=== PATIENT | female | born 1955 | race Caucasian/White ===

== ENCOUNTER → 2024-02-03 11:40 | Outpatient (REF) | payer MEDICARE, OTHER, SELFPAY | LOC: HWRAD 11:40 | PROVIDERS: ATTENDING PHYSICIAN Hospitalist; FAMILY PHYSICIAN Student in an Organized Health Care Education/Training Program; REFERRING PHYSICIAN Family Medicine | DX: M81.0 Age-related osteoporosis without current pathological fracture (principal); R05.1 Acute cough; M54.50 Low back pain, unspecified | CPT/HCPCS: 71046; 72114; 77080 ==

== ENCOUNTER 2024-04-28 11:42 | Emergency (ER) | payer MEDICARE, SELFPAY ==
[2024-04-28 11:47] VITALS: BP 125/74
--- NOTE | 2024-04-28 11:51 | ED.GENMED ---
ED Provider Triage
<NILTON Sanchez - Last Filed: 04/28/24 11:55>
-
Patient seen by provider in Triage?: Seen in Triage
Attestation: A medical screening examination has been initiated by a qualified medical provider. Based on the assessment performed at this time, it has been determined that an emergent medical condition may exist and the patient has been informed
that further medical evaluation and possible additional diagnostic testing may be needed.
HPI: 68-year-old female presents from [facility]. Patient had an injection of Prolia today for her osteoporosis and 5 minutes after felt lightheaded and foggy and then 15 minutes developed headache and has mild chest discomfort. She denies
any shortness of breath she denies any rash. She denies any lip or tongue swelling.
GENERAL: Alert , in no apparent distress
EYE: No visual abnormalities.
NECK: Trachea midline
ENT: No visible abnormalities, no lip or tongue swelling
LUNGS: No acute respiratory distress
NEUROLOGICAL: Alert and oriented
SKIN: Skin intact. No visible changes small amount of erythema at injection site, no hives
MUSCULOSKELETAL: Moving extremities normally
PSYCH: Normal and appropriate interaction.
This is a medical evaluation conducted in person to initiate diagnostic evaluation and provide initial therapeutics. Please see further documentation by the treating clinician.
History of Present Illness
<NILTON Sanchez - Last Filed: 04/28/24 11:55>
General
Chief Complaint: Allergic Reaction
Time Seen by Provider: 04/28/24 12:37
<Nadja Puentes MD - Last Filed: 04/28/24 14:27>
General
Source: patient
Exam Limitations: none
Nursing documentation reviewed up to this point in time: agreed with
History of Present Illness
History of Present Illness:
The patient is a 68-year-old female who reports that shortly after taking a Prolea injection today for osteoporosis, within 2 to 3 minutes, she experienced a feeling of itching inside her body, a rash around the injection site on her abdomen, a
feeling of dizziness and a headache. Patient also reports feeling mild chest tightness. Patient reports her symptoms are nearly gone with the exception of a residual headache which she describes as ' her entire head', throbbing, as well as a
small rash that is itchy on her abdomen. Patient has not had any meds prior to arrival. She denies shortness of breath and chest pain at this time. She reports she has never had an allergic reaction before. Patient denies vision changes, nausea,
vomiting, weakness and numbness.
Past History
<NILTON Sanchez - Last Filed: 04/28/24 11:55>
Past History
ED Past Medical History: Hypercholesterolemia, Psychiatric (a/d) and Other (coliitis/divverticulitis, neck/back pain)
ED Past Surgical History: Gynecological and Other
Patient has exhibited threatening behavior?: No
PSI?: No
Social History
Tobacco: Former smoker (quit ')
Alcohol: None
Personal:
Living: with family
Employment: Employed
Family History
Family History: CAD
Review of Systems
<Nadja Puentes MD - Last Filed: 04/28/24 14:27>
Review of Systems
Allergies reviewed?: Yes
All Other Systems: ROS reviewed and negative except as documented in HPI and ROS
Constitutional: Reports no symptoms
EENT: Reports no symptoms
Respiratory: Reports no symptoms
Cardiac: Reports chest pain
ABD/GI: Reports no symptoms
: Reports no symptoms
Musculoskeletal: Reports no symptoms
Skin: Reports itching and rash
Neurological: Reports dizzy and headache
Endocrine: Reports no symptoms
Hematologic/Lymphatic: Reports no symptoms
Psychiatric: Reports no symptoms
Phy Exam
<Nadja Puentes MD - Last Filed: 04/28/24 14:27>
Physical Exam
Physical Exam:
Physical Exam
General: no apparent distress, not acutely ill
Neck: supple. no meningeal signs. normal psoterior pharynx
Heart: s1/s2 regular rate and rhythm, no murmur. equal radial pulses.
Lungs: no acute respiratory distress. clear bilaterally
Abdomen: normal bowel sounds. not tender. no CVAT
Neuro: alert and oriented. no focal neurological deficits
Skin: Small circular papular rash that patient states is itchy on her right lower abdominal wall which patient reports is where she injected the medication
Psychiatric: well kept. interactive and cooperative
Extremities: no edema. no calf tenderness. negative homans. good distal pulses
Course
<NILTON Sanchez - Last Filed: 04/28/24 11:55>
Orders/Labs/Results
Orders:
Orders
04/28/24 11:44
Electrocardiogram (*1) Urgent
Reason for Study: Chest Pain
EKG- Treatment ONCE
04/28/24 13:37
Diphenhydramine [Benadryl] 25 mg PO NOW STA
Ibuprofen [Motrin] 600 mg PO NOW STA
04/28/24 13:[address] Non Medication Order As Directed
Physician Order: Patient can eat
Above order entered?: Yes
Vital Signs
Initial and Last Documented VS:
Initial Vital Signs
Temp Pulse Resp BP Pulse Ox
98.0 F 77 16 125/74 98
04/28/24 11:47 04/28/24 11:47 04/28/24 11:47 04/28/24 11:47 04/28/24 11:47
Last Documented Vital Signs
Temp Pulse Resp BP Pulse Ox
98.0 F 77 16 125/74 98
04/28/24 11:47 04/28/24 11:47 04/28/24 12:02 04/28/24 11:47 04/28/24 11:47
<Nadja Puentes MD - Last Filed: 04/28/24 14:27>
Orders/Labs/Results
Orders:
Orders
04/28/24 11:44
Electrocardiogram (*1) Urgent
Reason for Study: Chest Pain
EKG- Treatment ONCE
04/28/24 13:37
Diphenhydramine [Benadryl] 25 mg PO NOW STA
Ibuprofen [Motrin] 600 mg PO NOW STA
04/28/24 13:[address] Non Medication Order As Directed
Physician Order: Patient can eat
Above order entered?: Yes
Vital Signs
Initial and Last Documented VS:
Initial Vital Signs
Temp Pulse Resp BP Pulse Ox
98.0 F 77 16 125/74 98
04/28/24 11:47 04/28/24 11:47 04/28/24 11:47 04/28/24 11:47 04/28/24 11:47
Last Documented Vital Signs
Temp Pulse Resp BP Pulse Ox
98.0 F 77 16 125/74 98
04/28/24 11:47 04/28/24 11:47 04/28/24 12:02 04/28/24 11:47 04/28/24 11:47
<Nadja Puentes MD - Last Filed: 04/28/24 14:27>
MDM/Problems Addressed
Differential Diagnosis Includes:
Localized allergic reaction, dermatitis, anaphylaxis
MDM/Problems Addressed:
Patient presents with itchy rash at injection site, overall itchy feeling, chest tightness and headache within minutes after giving herself a new medication
<Nadja Puentes MD - Last Filed: 04/28/24 14:27>
*Pulse Oximetry
Patient hypoxic: no
*EKG
Interpreted by ED Provider?: Yes
Interpretation: abnormal
Comparison EKG: no changes
Rate: normal
Rhythm: sinus
[place]: normal axis
Interval: normal interval
QRS Pattern: normal QRS
Ischemia: non-specific ST changes
*Director Of Health Education Interpretation
Rate: Director Of Health Education- N/A
*Critical Care Note
Total Time (30-74mins, 75-104mins- exclusive of procedures): Not Applicable
Data Reviewed
Review of Other/Old Records Reveals: Other (Prior EKG done in January 2023 looks the same as it does today)
Source: patient and spouse
<Nadja Puentes MD - Last Filed: 04/28/24 14:27>
Update Note
Update Note:
2:20 PM patient feels much better. There is no sign of respiratory distress, uvular swelling or any signs of anaphylaxis
ED Attending Note
<NILTON Sanchez - Last Filed: 04/28/24 11:55>
-
Portions of this chart may have been created with voice recognition software.� Occasional wrong word or��sound alike� substitutions may have occurred due to the inherent limitations of voice recognition software.
Discharge Plan
Departure
Patient Disposition: Home (Routine Discharge)
Date of Disposition: 04/28/24
Time of Disposition: 14:24
Patient with high blood pressure during this ER visit?: No
Condition: Good
Covid-19: Not Applicable
Discharge Problem:
Allergic reaction caused by a drug
Instructions: Drug allergy
Prescriptions:
No Action
atorvastatin [Lipitor] 10 MG tablet
10 mg PO DAILY
valacyclovir 500 mg tablet
500 mg PO PRN PRN (Reason: shingles)
diazepam 10 mg Tablet
5 - 10 mg PO BID
Patient Comments:
05/17/2022: last filled 04/19/22, 40 tabs for 20 days from [id number]
Medical Marijuana
1 drp PO PRN PRN (Reason: anixety,mild pain)
Patient Comments:
05/17/2022: Pt vapes, and goes to [facility] [place] [address] [place] [phone]
citalopram [Celexa] 20 mg Tablet
20 mg PO DAILY
tramadol 50 mg tablet
50 mg PO Q6H PRN (Reason: pain) Qty: 20 0RF
Referrals:
Indra Markham, [Family Provider] -
Activity Restrictions/Additional Instructions:
Do not use that medication, Prolea, ever again. Take 25 mg of Benadryl every 6 hours as needed for any lingering itching
Interventions
Interventions:
*Risk Screen - Suicide Last Done: 04/28/24 11:47
*General Assessment Last Done: 04/28/24 12:05
*Neglect/Abuse Screening Last Done: 04/28/24 11:47
*ED COVID-19 Vaccine History Last Done: 04/28/24 12:05
ED- Cardiac Assessment Last Done: 04/28/24 12:05
ED- Pulmonary Assessment Last Done: 04/28/24 12:05
ED-Skin Assessment Last Done: 04/28/24 12:05
Discharge Date and Time
Print Language: CHINESE
[2024-04-28] MEDS: MOTRIN 600 MG PO (13:42)
[2024-04-28] MEDS: BENADRYL 25 MG PO (13:42)
[2024-04-28 14:32] VITALS: BP 121/74
== END 2024-04-28 14:35 | disposition home or self-care (01) ==
LOC: EMR 11:42
PROVIDERS: EMERGENCY PHYSICIAN Emergency Medicine; FAMILY PHYSICIAN Student in an Organized Health Care Education/Training Program
DX: R42 Dizziness and giddiness (principal); R51.9 Headache, unspecified; R07.89 Other chest pain; T50.905A Adverse effect of unspecified drugs, medicaments and biological substances, initial encounter; X58.XXXA Exposure to other specified factors, initial encounter; E78.00 Pure hypercholesterolemia, unspecified; M81.0 Age-related osteoporosis without current pathological fracture; Z82.49 Family history of ischemic heart disease and other diseases of the circulatory system; Z87.891 Personal history of nicotine dependence
CPT/HCPCS: 99283; 93005

== ENCOUNTER → 2024-06-13 15:12 | Outpatient (REF) | payer MEDICARE, SELFPAY | LOC: HWRAD 15:12 | PROVIDERS: ATTENDING PHYSICIAN Hospitalist; FAMILY PHYSICIAN Family Medicine | DX: M25.511 Pain in right shoulder (principal) | CPT/HCPCS: 73030 ==

== ENCOUNTER 2025-07-03 18:40 | Observation (INO) | payer MEDICARE, SELFPAY ==
[2025-07-03] VITALS (13 sets, daily range): BP systolic 106–159; BP diastolic 61–89; BMI 21.8; BMI 20.9
[2025-07-03 12:01] LABS: Hematocrit 39.8 % (37.0-47.0); Hemoglobin 13.2 g/dL (12.0-16.0); Mean Corp Hgb Conc. 33.2 g/dL (33.0-37.0); Mean Corpuscular Volume 82.7 fL (81.0-99.0); Nucleated Red Blood Cells % 0 %; Platelet Count 207 10^3/uL (130-400); Red Cell Dist. Width 13.2 % (11.5-14.5)
--- NOTE | 2025-07-03 12:02 | ED.GENMED ---
History of Present Illness
<Grover Fletcher MD, Resident - Last Filed: 07/03/25 19:04>
General
Chief Complaint: Chest Pain
Time Seen by Provider: 07/03/25 12:02
History of Present Illness
History of Present Illness:
70 yo F PMH HLD, depression, anxiety GERD p/w chest pain at 9am this morning. She describes pressure-like pain, nonradiating, associated with some dyspnea. she reports no change to her routine, the pressure came up with no clear trigger. She denies
nausea/vomiting. She denies palpitations now, but experienced them a few days ago.
She started remeron since last Thursday and is on escitalopram.
She denies fevers or sweating.
Past History
<Grover Fletcher MD, Resident - Last Filed: 07/03/25 19:04>
Past History
ED Past Medical History: Hypercholesterolemia, Psychiatric (a/d) and Other (coliitis/divverticulitis, neck/back pain)
ED Past Surgical History: Gynecological and Other
Patient has exhibited threatening behavior?: No
PSI?: No
Social History
Tobacco: Former smoker (quit ')
Alcohol: None
Personal:
Living: with family
Employment: Employed
Family History
Family History: CAD
Review of Systems
<Grover Fletcher MD, Resident - Last Filed: 07/03/25 19:04>
Review of Systems
Constitutional: Reports no symptoms
EENT: Reports no symptoms
Respiratory: Reports trouble breathing
Cardiac: Reports chest pain
ABD/GI: Reports no symptoms
: Reports no symptoms
Musculoskeletal: Reports no symptoms
Neurological: Reports no symptoms
Phy Exam
<Grover Fletcher MD, Resident - Last Filed: 07/03/25 19:04>
Physical Exam
Physical Exam:
VS 139/70, HR 57, T 97.9
General: no acute distress
CV: no murmurs on my exam
Pulm: CTAB
GI: no tenderness to palpation
MSK: no lower extremity edema
Neuro: AOx3, nonfocal
Scores
<Grover Fletcher MD, Resident - Last Filed: 07/03/25 19:04>
Heart Score for Chest Pain Patients
STEMI patient?: No
History: Moderately Suspicious
ECG: Normal
Age: >/= 65 years
Risk Factors: 1 or 2 Risk Factors
Troponin: </= Normal Limit
Heart Score for Chest Pain Patients: 4
Heart Score Risk: 20.3% MACE over next 6 weeks
Course
<Grover Fletcher MD, Resident - Last Filed: 07/03/25 19:04>
Orders/Labs/Results
Orders:
Orders
07/03/25
Electrocardiogram (*1) Stat
Comment: DONE EMR
07/03/25 10:40
EKG [Electrocardiogram (*1)] Urgent
Reason for Study: Chest Pain
07/03/25 10:41
EKG- Treatment ONCE
07/03/25 11:31
C-Reactive Protein Urgent
Comment: ADD ON
Complete Blood Count/With Diff Urgent
Comprehensive Metabolic Panel Urgent
Erythrocyte Sed Rate Urgent
Comment: ADD ON
Troponin I Urgent
07/03/25 12:33
Aspirin Chewable [Low Strength Aspirin] 324 mg PO NOW STA
07/03/25 12:48
Nitroglycerin Sublingual [Nitrostat (Sublingual)] 0.4 mg SL NOW STA
CR Chest - 2 Views Urgent
Comment:
Reason For Exam: chest pain
07/03/25 14:20
Troponin I Urgent
07/03/25 15:39
Electrocardiogram (*1) Urgent
Reason for Study: Chest Pain
EKG- Treatment ONCE
07/03/25 15:45
Echo 2D MMode Color/Doppler Stat
Reason for Study: chest pain
07/03/25 16:52
Ketorolac [Toradol] 15 mg IV NOW STA
07/03/25 16:53
Add On- LAB Urgent
Tests Added?: ESR/CRP
07/03/25 16:56
Pantoprazole [Protonix IV] 40 mg IV NOW STA
07/03/25 17:01
D-Dimer Urgent
07/03/25 17:48
Admit/Transfer Patient As Directed
Co-Sign Provider:
Level of Care: Observation services
Assign to:: Telemetry
Physician / Group: htay
Diagnosis: CP
Reason for Telemetry: Chest Pain syndromes
Date to Stop Telemetry: 07/05/25
Time to Stop Telemetry: 11:00
07/03/25 17:49
Code Status As Directed
Resuscitation Status: Full Code
07/03/25 17:53
CT Chest PE Study Urgent
Comment:
Reason For Exam: chest pain, elevated D-dimer
07/05/25 11:00
DC Protocol for Telemetry ONCE
Abnormal Lab Results
07/03/25 07/03/25
11:31 17:01
MPV 11.4 H fL
(7.4-10.4)
ESR 22 H mm/hour
(0-20)
D-Dimer 1.35 H ug/mlFEU
(0.00-0.50)
Chloride 109 H mmol/L
(98-107)
07/03/25 11:31
07/03/25 11:31
Vital Signs
Initial and Last Documented VS:
Initial Vital Signs
Temp Pulse Resp BP Pulse Ox
97.9 F 66 16 148/83 96
07/03/25 10:44 07/03/25 10:44 07/03/25 10:44 07/03/25 10:44 07/03/25 10:44
Last Documented Vital Signs
Temp Pulse Resp BP Pulse Ox
97.9 F 68 20 121/65 96
07/03/25 10:44 07/03/25 18:00 07/03/25 18:00 07/03/25 18:00 07/03/25 18:00
<Mario Berg, DO - Last Filed: 07/03/25 13:14>
Orders/Labs/Results
Orders:
Orders
07/03/25
Electrocardiogram (*1) Stat
Comment: DONE EMR
07/03/25 10:40
EKG [Electrocardiogram (*1)] Urgent
Reason for Study: Chest Pain
07/03/25 10:41
EKG- Treatment ONCE
07/03/25 11:31
C-Reactive Protein Urgent
Comment: ADD ON
Complete Blood Count/With Diff Urgent
Comprehensive Metabolic Panel Urgent
Erythrocyte Sed Rate Urgent
Comment: ADD ON
Troponin I Urgent
07/03/25 12:33
Aspirin Chewable [Low Strength Aspirin] 324 mg PO NOW STA
07/03/25 12:48
Nitroglycerin Sublingual [Nitrostat (Sublingual)] 0.4 mg SL NOW STA
CR Chest - 2 Views Urgent
Comment:
Reason For Exam: chest pain
07/03/25 14:20
Troponin I Urgent
07/03/25 15:39
Electrocardiogram (*1) Urgent
Reason for Study: Chest Pain
EKG- Treatment ONCE
07/03/25 15:45
Echo 2D MMode Color/Doppler Stat
Reason for Study: chest pain
07/03/25 16:52
Ketorolac [Toradol] 15 mg IV NOW STA
07/03/25 16:53
Add On- LAB Urgent
Tests Added?: ESR/CRP
07/03/25 16:56
Pantoprazole [Protonix IV] 40 mg IV NOW STA
07/03/25 17:01
D-Dimer Urgent
07/03/25 17:48
Admit/Transfer Patient As Directed
Co-Sign Provider:
Level of Care: Observation services
Assign to:: Telemetry
Physician / Group: htay
Diagnosis: CP
Reason for Telemetry: Chest Pain syndromes
Date to Stop Telemetry: 07/05/25
Time to Stop Telemetry: 11:00
07/03/25 17:49
Code Status As Directed
Resuscitation Status: Full Code
07/03/25 17:53
CT Chest PE Study Urgent
Comment:
Reason For Exam: chest pain, elevated D-dimer
07/05/25 11:00
DC Protocol for Telemetry ONCE
Abnormal Lab Results
07/03/25 07/03/25
11:31 17:01
MPV 11.4 H fL
(7.4-10.4)
ESR 22 H mm/hour
(0-20)
D-Dimer 1.35 H ug/mlFEU
(0.00-0.50)
Chloride 109 H mmol/L
(98-107)
07/03/25 11:31
07/03/25 11:31
Vital Signs
Initial and Last Documented VS:
Initial Vital Signs
Temp Pulse Resp BP Pulse Ox
97.9 F 66 16 148/83 96
07/03/25 10:44 07/03/25 10:44 07/03/25 10:44 07/03/25 10:44 07/03/25 10:44
Last Documented Vital Signs
Temp Pulse Resp BP Pulse Ox
97.9 F 68 20 121/65 96
07/03/25 10:44 07/03/25 18:00 07/03/25 18:00 07/03/25 18:00 07/03/25 18:00
<Cade Quezada MD - Last Filed: 07/03/25 16:58>
Orders/Labs/Results
Orders:
Orders
07/03/25
Electrocardiogram (*1) Stat
Comment: DONE EMR
07/03/25 10:40
EKG [Electrocardiogram (*1)] Urgent
Reason for Study: Chest Pain
07/03/25 10:41
EKG- Treatment ONCE
07/03/25 11:31
C-Reactive Protein Urgent
Comment: ADD ON
Complete Blood Count/With Diff Urgent
Comprehensive Metabolic Panel Urgent
Erythrocyte Sed Rate Urgent
Comment: ADD ON
Troponin I Urgent
07/03/25 12:33
Aspirin Chewable [Low Strength Aspirin] 324 mg PO NOW STA
07/03/25 12:48
Nitroglycerin Sublingual [Nitrostat (Sublingual)] 0.4 mg SL NOW STA
CR Chest - 2 Views Urgent
Comment:
Reason For Exam: chest pain
07/03/25 14:20
Troponin I Urgent
07/03/25 15:39
Electrocardiogram (*1) Urgent
Reason for Study: Chest Pain
EKG- Treatment ONCE
07/03/25 15:45
Echo 2D MMode Color/Doppler Stat
Reason for Study: chest pain
07/03/25 16:52
Ketorolac [Toradol] 15 mg IV NOW STA
07/03/25 16:53
Add On- LAB Urgent
Tests Added?: ESR/CRP
07/03/25 16:56
Pantoprazole [Protonix IV] 40 mg IV NOW STA
07/03/25 17:01
D-Dimer Urgent
07/03/25 17:48
Admit/Transfer Patient As Directed
Co-Sign Provider:
Level of Care: Observation services
Assign to:: Telemetry
Physician / Group: htay
Diagnosis: CP
Reason for Telemetry: Chest Pain syndromes
Date to Stop Telemetry: 07/05/25
Time to Stop Telemetry: 11:00
07/03/25 17:49
Code Status As Directed
Resuscitation Status: Full Code
07/03/25 17:53
CT Chest PE Study Urgent
Comment:
Reason For Exam: chest pain, elevated D-dimer
07/05/25 11:00
DC Protocol for Telemetry ONCE
Abnormal Lab Results
07/03/25 07/03/25
11:31 17:01
MPV 11.4 H fL
(7.4-10.4)
ESR 22 H mm/hour
(0-20)
D-Dimer 1.35 H ug/mlFEU
(0.00-0.50)
Chloride 109 H mmol/L
(98-107)
07/03/25 11:31
07/03/25 11:31
Vital Signs
Initial and Last Documented VS:
Initial Vital Signs
Temp Pulse Resp BP Pulse Ox
97.9 F 66 16 148/83 96
07/03/25 10:44 07/03/25 10:44 07/03/25 10:44 07/03/25 10:44 07/03/25 10:44
Last Documented Vital Signs
Temp Pulse Resp BP Pulse Ox
97.9 F 68 20 121/65 96
07/03/25 10:44 07/03/25 18:00 07/03/25 18:00 07/03/25 18:00 07/03/25 18:00
<Grover Fletcher MD, Resident - Last Filed: 07/03/25 19:04>
MDM/Problems Addressed
Differential Diagnosis Includes:
ACS, anxiety, PE/DVT, serotonin syndrome, GERD
MDM/Problems Addressed:
70 yo F p/w chest pain, pressure, with dyspnea no clear trigger. recently started mirtazapine with escitalopram
afebrile, she denies fevers or sweating pointing away from serotonin syndrome
EKG was NSR; troponin < 0.012 which currently reassure against ACS
CBC/CMP largely unremarkable
She reports an extensive family history (mother had CABG, brothers both had myocardial infarctions).
she reports being relatively inactive, but no immobilization or recent travel, no recent surgeries or malignancy hx, no asymmetric leg swelling, which would raise concern for PE or DVT.
she denies hemoptysis
Plan:
- repeat troponin at 3hr
- aspirin 324mg
- sublingual nitroglycerin 0.4mg
- CXR
Update:
- CXR no acute cardiopulmonary process
- repeat troponin < 0.012
- However, patient reports that her chest pain has worsened while in the ED, and while being at rest
- cardiology DCA notified
Update:
- echocardiogram - unremarkable
- per cardiology, admit to hospitalist and if chest pain persists in AM, possible cath
- d-dimer returned elevated 1.35, CT Chest PE ordered
Update:
CT Chest PE no evidence of PE:
1. Mild cardiomegaly.
2. Mild right lung volume loss with mild left to right mediastinal shift and mild elevation of the right hemidiaphragm.
3. Mild bilateral bronchitis.
4. Moderate mosaic attenuation in the lower lobes suggesting obstructive small airways disease with multifocal air trapping and subsegmental atelectasis.
5. Multilevel vertebral body endplate compression fractures in the thoracic spine with mild multilevel loss of vertebral body height.
Patient has been admitted to hospitalist team and will be followed up by cardiology service in the AM.
<Grover Fletcher MD, Resident - Last Filed: 07/03/25 19:04>
*Pulse Oximetry
SaO2: 97
Oxygen Mode of Delivery: Room air
Patient hypoxic: no
*Critical Care Note
Total Time (30-74mins, 75-104mins- exclusive of procedures): Not Applicable
<Cade Quezada MD - Last Filed: 07/03/25 16:58>
Update Note
Update Note:
Pt evaluated in ED by cardiology () - in light of persistent chest pain, recommends that patient to be admitted under hospitalist service for further evaluation and treatment, including trending of cardiac enzymes. In addition, recommends
checking for ESR/CRP, as well as D-dimer. Cardiology service will continue to follow the patient as an inpatient.
ED Attending Note
<Grover Fletcher MD, Resident - Last Filed: 07/03/25 19:04>
-
Portions of this chart may have been created with voice recognition software.� Occasional wrong word or��sound alike� substitutions may have occurred due to the inherent limitations of voice recognition software.
<Mario Berg DO - Last Filed: 07/03/25 13:14>
ED Attending Note
Patient seen and examined by attending physician: Yes
I performed a history and physical exam of patient and discussed management with resident, I reviewed resident's note and agree with documented findings and plan of care.: Yes
ED Attending Note:
I have reviewed and agree with history treatment plan by Grover Fletcher MD. My exam revealed
Physical Exam
General: no apparent distress, not acutely ill
Neck: supple. no meningeal signs. normal posterior pharynx
Heart: s1/s2 regular rate and rhythm, no murmur. equal radial
pulses.
HEENT: Pupils equal round reactive to light, EOMI
Lungs: no acute respiratory distress. clear bilaterally
Abdomen: normal bowel sounds. not tender. no CVAT
Neuro: alert and oriented. no focal neurological deficits cranial nerves II through XII intact
Skin: no rash
Psychiatric: well kept. interactive and cooperative
Extremities: no edema. no calf tenderness. negative homans. good distal pulses
70-year-old female with mild chest pressure. Initial troponin and EKG normal. Will repeat troponin, give aspirin and dose of nitroglycerin, and reassess. If pain persists, will consider admission, if resolved and negative troponin on repeat may
consider outpatient follow-up with cardiology.
Discharge Plan
Departure
Patient Disposition: Admit
Date of Disposition: 07/03/25
Time of Disposition: 16:56
Admit to: Telemetry
Presentation/result/management discussed w/ accepting MD/DO: Hospitalist
Discharge Problem:
Chest pain
Interventions
Interventions:
*General Assessment Last Done: 07/03/25 11:46
*Neglect/Abuse Screening Last Done: 07/03/25 11:46
*ED COVID-19 Vaccine History Last Done: 07/03/25 11:46
*ED Influenza Vaccine History Last Done: 07/03/25 11:46
[facility] Risk Assessment Tool Last Done: 07/03/25 11:46
*Risk Screen - Suicide (C-SSRS) Last Done: 07/03/25 11:46
ED- Cardiac Assessment Last Done: 07/03/25 11:46
[2025-07-03 12:15] LABS: ALT (SGPT) 23 U/L (0-35); AST (SGOT) 27 U/L (14-36); Albumin 4.1 g/dl (3.5-5.0); Alkaline Phosphatase 107 U/L (38-126); Blood Urea Nitrogen 12 mg/dl (7-17); Calcium 9.4 mg/dl (8.4-10.2); Carbon Dioxide 24 mmol/L (22-30); Chloride 109 mmol/L (98-107); Estimated Creatinine Clearance 62 ml/min; Glucose 90 mg/dl (70-99); Potassium 4.2 mmol/L (3.5-5.1); Sodium 138 mmol/L (135-145); Total Protein 7.1 g/dl (6.3-8.2); eGFR > 60.00
[2025-07-03 12:27] LABS: Troponin I < 0.012 ng/ml
[2025-07-03] MEDS: LOW STRENGTH ASPIRIN 324 MG PO (12:37)
[2025-07-03] MEDS: NITROSTAT (SUBLINGUAL) 0.4 MG SL (12:56)
[2025-07-03 14:54] LABS: Troponin I < 0.012 ng/ml
--- NOTE | 2025-07-03 16:52 | CON.CAR ---
Addendum entered and electronically signed by Christelle Joseph MD 07/03/25 17:36:
I saw and examined the patient.
[facility]'s note was reviewed and I agree with the note.
Comment: Nadya is a 67-year-old female with past medical history significant for anxiety/depression, IBS, C. difficile episodes in the past with diverticulitis, gastroparesis who presents for episode of acute onset chest pain which then comes
and goes while she was at rest not exerting herself. There is no exacerbating or alleviating factors. It is not associated with shortness of breath though she does get short of breath every now and then. She gets occasional palpitations. No
syncope. She had troponin x 2 which are undetectable. ECG shows sinus bradycardia without any acute ischemic changes. We have been consulted due to concern for possible unstable angina.
.
Vital signs and lab work reviewed. On exam patient has a flat affect, at bedside, regular rate, normal S1 and S2, no murmurs, rubs or gallops, abdomen is soft, nontender, nondistended with active bowel sounds, warm extremities without
significant edema, normal carotid strokes, no carotid bruit, no JVD
.
Recommendations:
1. We reviewed the echocardiogram at bedside which showed normal biventricular function without significant valvular abnormalities or wall motion abnormalities.
2. We had a honest discussion with patient and her and discussed that there is no clear etiology of her chest discomfort. She does not report any recent illnesses however does get exposed to grandkids who have had recent viral infection so
we will check a ESR and CRP to rule out a inflammatory component though on exam her chest pain is not reproducible with no evidence of costochondritis. Recommend checking a D-dimer to rule out concerns for possible PE given patient is not very
active due to underlying depression. Plan to continue trending troponins while watching on telemetry and checking an EKG in the morning. If she has ongoing chest pain with no other clear etiology then we would consider her heart catheterization
after reviewing the risk and benefits with her. If she is chest pain-free with continued troponins which are undetectable, we would consider possible noninvasive testing. Given her gastroparesis we did question if there is any utility in getting
GI input to make sure that there is no GI causes for her symptoms.
Discussed all of the above with patient and family at bedside who are in agreement. Discussed all of the above with ED physician as well
.
Christelle Joseph MD, [facility], [facility]
[id number]
Original Note:
Consultation
Consultation Request
Date/Time Consultation Requested: 07/03/2025
Date/Time Consultation Performed: 07/03/2025
Requesting Provider: Dr. Quezada
Performing Provider: рИина Gamboa PA-C for Dr. Joseph
Reason for Consultation: Chest pain
Medical History
-
History of Present Illness:
Patient is a 67-year-old female with past medical history significant for anxiety/depression, IBS, C. difficile, diverticulitis and gastroparesis who presents to emergency department 07/03/2025 with acute onset of chest pain. Patient reports she
was sitting on the morning of 07/03/2025 when she developed acute substernal chest pain. Symptoms no worse with activity or exertion and denies associated shortness of breath although at times she feels like it may be harder to take a deep breath.
She does report several days ago she had an episode where she felt her heart was beating faster than normal which resolved spontaneously. She admits she is not very active and is quite sedentary due to depression. She was placed on Remeron within
the last week. Given ongoing symptoms she decided to come to emergency department. She was given aspirin 324 mg and sublingual nitroglycerin without significant improvement of symptoms workup in emergency department includes EKG which shows sinus
bradycardia without ischemic changes. Troponin x 2 undetectable. Chest x-ray no acute cardiopulmonary disease. D-dimer pending. Preliminary echocardiogram performed while patient was in emergency department shows normal ejection fraction with no
significant valvular disease. At time of this evaluation patient continues to have some mild substernal chest pain she has rates as a 1-2 out of 10. Patient denies recent illnesses or exposures or recent illnesses
Past medical history:
Anxiety/depression
IBS
History of C. difficile
Diverticulitis
Past Medical History
Past Medical History: Other (See HPI)
Past Surgical History: Bowel Resection (Sigmoidectomy) and Gynecological (Hysterectomy, BSO)
Social History
Tobacco: Former Smoker (Quit approximately 2014)
Alcohol: None
Drug: None
Personal:
Living: With Family
Family History
Family History: CAD (Mother has history of CAD and CABG. 1 brother in 70s of CAD with stents. Other brother had stents in his 50s)
Allergies / Home Medications
Allergy/AdvReac Type Severity Reaction Status Date / Time
cephalexin monohydrate (From Allergy hives,swelling,trouble Verified 07/03/25 10:47
Keflex) breathing
lactose Allergy INTOLERANT Verified 07/03/25 10:47
pollen extracts Allergy congestion Verified 07/03/25 10:47
vortioxetine (From Allergy 'changed Verified 07/03/25 10:47
Trintellix) personality'
�Medication �Instructions �Recorded �Confirmed �Type
atorvastatin 10 mg tablet (Lipitor) 10 mg PO DAILY High cholesterol 04/26/21 11/14/22 History
Medical Marijuana 1 drp PO PRN PRN anixety,mild pain 05/17/22 11/14/22 History
diazepam 10 mg tablet 5 - 10 mg PO BID Mental 05/17/22 11/14/22 History
Health/Anxiety
valacyclovir 500 mg tablet 500 mg PO PRN PRN shingles 05/17/22 11/14/22 History
citalopram 20 mg tablet (Celexa) 20 mg PO DAILY Mental 11/07/22 11/14/22 History
Health/Anxiety
tramadol 50 mg tablet 50 mg PO Q6H PRN pain #20 tabs 11/17/22 Rx
Review of Systems
-
History Source: Patient
All other systems: Negative unless noted
Physical Exam
Vital Signs
Temp Pulse Resp BP Pulse Ox
97.9 F 53 9 117/61 97
07/03/25 10:44 07/03/25 15:30 07/03/25 15:30 07/03/25 15:00 07/03/25 15:30
GEN: No distress, awake, Ox3
HEENT: supple, anicteric, mmm
LUNGS: CTA, no wheezes/rales
CV: Reg, S1/S2,no murmur, rub or gallop
ABD: soft, BS+, NT/ND
EXT: No edema, clubbing or cyanosis
NEURO: Gross non-focal
SKIN: No rash, warm, dry, pink
Lab Results
07/03/25 11:31
07/03/25 11:31
Troponin I < 0.012 ng/ml 07/03/25 14:20
Impression / Plan
-
PCP: Gualberto Vazquez
Organ Teacher: Dr. Cole, has not been to office since 2022
Impression:
Presents 07/03/2025 with acute onset of chest pain at rest and morning of presentation
Anxiety/depression
IBS
History of C. difficile
Diverticulitis
Echocardiogram 07/03/2025: Preliminary report shows preserved ejection fraction and no significant valve disease. Official report pending
Lexiscan nuclear stress test 02/19/2023: Fixed defect in mid inferior segment consistent with soft tissue attenuation. EF greater than 65%. TDI not present ratio 0.91
Plan:
-Presents 07/03/2025 with acute onset of chest pain at rest and morning of presentation
- EKG shows sinus bradycardia without evidence of ischemia. Troponins x 2 negative. Chest x-ray shows no acute cardiopulmonary abnormality
-Was provided sublingual nitroglycerin and aspirin 324 mg without resolution of symptoms
-Currently chest pain 1-2/10 and appears to be more waxing and waning.
-Add on D-dimer, sed rate/CRP
-Echocardiogram preliminary report shows preserved ejection fraction and no significant valvular disease
-Unclear etiology of patient's chest pain. Reassuring that echocardiogram is unremarkable and troponins serially have been negative. Possibly could be GI or muscular.
-Would monitor patient overnight and continue to trend troponin every 6 hours x 2. If abnormal would consider cardiac catheterization in AM. If troponins remain undetectable then could consider repeating outpatient ischemic evaluation which was
last performed in 2022 versus CTA coronary arteries as outpatient.
HPI 07/03/2025:
Patient is a 67-year-old female with past medical history significant for anxiety/depression, IBS, C. difficile, diverticulitis and gastroparesis who presents to emergency department 07/03/2025 with acute onset of chest pain. Patient reports she
was sitting on the morning of 07/03/2025 when she developed acute substernal chest pain. Symptoms no worse with activity or exertion and denies associated shortness of breath although at times she feels like it may be harder to take a deep breath.
She does report several days ago she had an episode where she felt her heart was beating faster than normal which resolved spontaneously. She admits she is not very active and is quite sedentary due to depression. She was placed on Remeron within
the last week. Given ongoing symptoms she decided to come to emergency department. She was given aspirin 324 mg and sublingual nitroglycerin without significant improvement of symptoms workup in emergency department includes EKG which shows sinus
bradycardia without ischemic changes. Troponin x 2 undetectable. Chest x-ray no acute cardiopulmonary disease. D-dimer pending. Preliminary echocardiogram performed while patient was in emergency department shows normal ejection fraction with no
significant valvular disease. At time of this evaluation patient continues to have some mild substernal chest pain she has rates as a 1-2 out of 10. Patient denies recent illnesses or exposures or recent illnesses.
Patient has had multiple visits to emergency department in past for chest pain with unremarkable workup
Data Reviewed
-
EKG: Report Reviewed by me, Discussed with Physician, Discussed with Patient and Discussed with Family
Radiology: Report Reviewed by me, Discussed with Physician, Discussed with Patient and Discussed with Family
Medical Tests (Nuc Med, Echo etc): Report Reviewed by me, Discussed with Physician, Discussed with Patient and Discussed with Family
Labs: Labs Reviewed by me, Discussed with Physician, Discussed with Patient and Discussed with Family
Old Records: Reviewed
[2025-07-03] MEDS: TORADOL 15 MG IV (17:04)
[2025-07-03] MEDS: PROTONIX IV 40 MG IV (17:05)
--- NOTE | 2025-07-03 17:29 | HPS.HSE ---
Family Physician
-
Family Physician: Indra Markham, DO
Chief Complaint
-
CP
History of Present Illness
HPI�
70F PMHX anxiety/depression, IBS, C. difficile, diverticulitis and gastroparesis
Seen at ER for cute onset of chest pain at rest
- Symptoms no worse with activity or exertion and denies associated shortness of breath
- she felt her heart was beating faster than normal which resolved spontaneously.
EKG: SB without evidence of acute ischemia
- 2 NEG Troponins
- Was provided sublingual nitroglycerin and aspirin 324 mg without resolution of symptoms
- D-dimer pending.
Preliminary TTE at ER
Nl LVEF
No ith no significant valvular disease. At time of this evaluation patient continues to have some mild substernal chest pain she has rates as a 1-2 out of 10. Patient denies recent illnesses or exposures or recent illnesses
Medical History
Past Medical History
Past Medical History: Reports Other
Additional Past Medical History:
Past medical history and archive:
Recurrent C. difficile
Recurrent diverticulitis
Anxiety
Dyslipidemia
IBS
Surgical history:
Hysterectomy and bilateral salpingo-oophorectomy
Social history: Lives at home with her independently, denies smoking but uses marijuana medically as she has a card, no alcohol or drug use, drinks Pepsi frequently daily.
Family history: Reviewed and noncontributory
Past Surgical History: Reports Appendectomy
Social History
Unable to obtain full social history at this time due to: Other
Tobacco: Non-smoker
Family History
Family History: Other
Allergies / Home Medications
Allergies reflects when Allergies were last updated in [employer].
Home Medications with original date entered in [employer]
Allergy/Medication List:
Allergies
Allergy/AdvReac Type Severity Reaction Status Date / Time
cephalexin monohydrate Allergy hives,swelling,trouble Verified 05/17/22 09:35
[From Keflex] breathing
hydromorphone HCl Allergy Itching Verified 05/17/22 09:35
[From Dilaudid]
lactose Allergy INTOLERANT Verified 05/17/22 09:35
Seasonal Allergies Allergy Unknown Unknown Uncoded 05/17/22 09:35
Home Medications
clonazepam 0.5 mg tablet 0.5 mg PO HS 04/05/11
paroxetine HCl 10 mg tablet 30 mg PO DAILY 04/28/14
clonazepam 0.5 mg tablet 0.5 mg PO DAILYPRN PRN ANXIETY 11/27/16
melatonin 3 mg tablet 3 mg PO HS 11/27/16
atorvastatin 10 mg tablet (Lipitor) 10 mg PO Daily 04/26/21
Review of Systems
-
Constitutional: Reports No Symptoms
EENT: Reports No Symptoms
Respiratory: Reports No Symptoms
Cardiac: Reports See HPI
Abdomen/GI: Reports No Symptoms
: Reports No Symptoms
Musculoskeletal: Reports No Symptoms
Skin: Reports No Symptoms
Neurological: Reports No Symptoms
Endocrine: Reports No Symptoms
Hematologic/Lymphatic: Reports No Symptoms
Psych: Reports No Symptoms
Physical Exam
Vital Signs
Vital Signs
Temp Pulse Resp BP Pulse Ox
97.9 F 53 9 117/61 97
07/03/25 10:44 07/03/25 15:30 07/03/25 15:30 07/03/25 15:00 07/03/25 15:30
Physical Exam
General: Well Developed, Well Nourished and No Apparent Distress
HEENT: NormoCephalic, Moist mucous membranes and Atraumatic
Respiratory: Clear
Cardiac: S1/S2 and Regular Rhythm; No Murmur or Rub
GI: Soft, Non Tender, Non Distended and Normal Bowel Sounds; No Organomegaly
Rectal: Deferred by Provider
Musculoskeletal: No Clubbing, No Cyanosis and No Edema
Skin: No Rash
Neuro: Nonfocal/grossly intact
Laboratory Results
-
07/03/25 11:31
07/03/25 11:31
Laboratory Results
Total Bilirubin 0.6 mg/dl (0.2-1.3) 07/03/25 11:31
AST 27 U/L (14-36) 07/03/25 11:31
ALT 23 U/L (0-35) 07/03/25 11:31
Alkaline Phosphatase 107 U/L (38-126) 07/03/25 11:31
Troponin I < 0.012 ng/ml 07/03/25 14:20
Data Reviewed
-
Medical Tests (Nuc Med, Echo, EKG etc): Report Reviewed by me
Lab Data: Labs Reviewed by me
Impression/Plan
-
Vital Signs
Temp Pulse Resp BP Pulse Ox
97.9 F 53 9 117/61 97
07/03/25 10:44 07/03/25 15:30 07/03/25 15:30 07/03/25 15:00 07/03/25 15:30
07/03/25 07/03/25
11:31 14:20
Troponin I < 0.012 < 0.012
07/03/25 07/03/25
11:31 17:01
MPV 11.4 H
D-Dimer 1.35 H
Chloride 109 H
07/03/25
17:01
D-Dimer 1.35 H
07/03/25
11:31
C-Reactive Protein < 5.00
EKG
SINUS BRADYCARDIA
NONSPECIFIC ST AND T WAVE ABNORMALITY
OTHERWISE NORMAL ECG
WHEN COMPARED WITH ECG OF 03-Jul-2025 10:42,
NO SIGNIFICANT CHANGE WAS FOUND
Confirmed by ELISE GUZMAN MD ([id number]) on 07/03/2025 5:30:35 PM
CTC
. Mild cardiomegaly.
2. Mild right lung volume loss with mild left to right mediastinal shift and mild elevation of the right hemidiaphragm.
3. Mild bilateral bronchitis.
4. Moderate mosaic attenuation in the lower lobes suggesting obstructive small airways disease with multifocal air trapping and subsegmental atelectasis.
5. Multilevel vertebral body endplate compression fractures in the thoracic spine with mild multilevel loss of vertebral body height.
07/03/2025 TTE : Preliminary report shows preserved ejection fraction and no significant valve disease. Official report pending
Lexiscan nuclear stress test 02/19/2023: Fixed defect in mid inferior segment consistent with soft tissue attenuation. EF greater than 65%. TDI not present ratio 0.91
Last hospitalist admission: 05/17/2022 - 05/21/2022
DISCHARGE DIAGNOSES:
1. Recurrent diverticulitis.
2. Clostridium difficile colitis.
3. Right adrenal gland adenoma-9 mm.
4. Anxiety and depression.
5. Irritable bowel syndrome.
6. Psoriasis.
7. High cholesterol.
8. Thoracic spine compression fracture.
ASSESSMENT & PLAN
Pending Rx reconciliation
CP at rest on presentation - uncertain origin
Currently CP 1-2/10 - waxing and waning.
- 2 NEG TPNI
- Prelim uregent TTE at ER : Nl LVEF, no significant valvular disease
- SL NTG & ASA but resolution of symptoms
- to trend TPNI
- on Stain
- DCA Card consult note reviewed
Elevated DD
- NEG CTC for central PE
HX GERD
- on PO PPI
Known HX
Anxiety/depression: Valium,Spravato,Vortioxetine
IBS
Psoriasis
Gastroparesis
DVT Px: LMWH
Full code
OBS TLM
[2025-07-03 17:34] LABS: D-Dimer 1.35 ug/mlFEU (0.00-0.50)
[2025-07-03 17:42] LABS: C-Reactive Protein < 5.00 mg/L (0.0-10.00)
[2025-07-03] MEDS: LOVENOX 40 MG SC (20:53)
[2025-07-03 21:35] LABS: Troponin I < 0.012 ng/ml
[2025-07-04 01:13] LABS: Troponin I < 0.012 ng/ml
[2025-07-04 02:50] VITALS: BP 108/68
[2025-07-04 04:03] LABS: Hematocrit 35.1 % (37.0-47.0); Hemoglobin 11.6 g/dL (12.0-16.0); Mean Corp Hgb Conc. 33.0 g/dL (33.0-37.0); Mean Corpuscular Volume 82.6 fL (81.0-99.0); Platelet Count 206 10^3/uL (130-400); Red Cell Dist. Width 13.2 % (11.5-14.5)
[2025-07-04 04:28] LABS: ALT (SGPT) 19 U/L (0-35); AST (SGOT) 20 U/L (14-36); Albumin 3.3 g/dl (3.5-5.0); Alkaline Phosphatase 92 U/L (38-126); Blood Urea Nitrogen 19 mg/dl (7-17); Calcium 9.0 mg/dl (8.4-10.2); Carbon Dioxide 23 mmol/L (22-30); Chloride 109 mmol/L (98-107); Estimated Creatinine Clearance 49 ml/min; Glucose 91 mg/dl (70-99); Potassium 4.0 mmol/L (3.5-5.1); Sodium 137 mmol/L (135-145); Total Protein 6.0 g/dl (6.3-8.2); eGFR > 60.00
[2025-07-04 04:38] LABS: Troponin I < 0.012 ng/ml
[2025-07-04 06:00] VITALS: BMI 20.9
[2025-07-04 07:42] VITALS: BP 131/74
[2025-07-04] MEDS: CELEXA 20 MG PO (07:42)
[2025-07-04] MEDS: LOW STRENGTH ASPIRIN 81 MG PO (07:42)
--- NOTE | 2025-07-04 08:33 | W.PN.CARDCBS ---
Addendum entered and electronically signed by Ab Ragsdale DO 07/04/25 09:27:
I saw and examined the patient.
The [facility]'s note was reviewed and I agree with the note.
Comment:
Plan:
Atypical cp with negative troponins and echo stable.
Discussed stress echo and she was agreeable.
Cont ASA and statin.
Will arrange outpt cardiac follow up.
Original Note:
Today's Communication / Plan
-
for stress echo today, NPO
continue asa, statin
will arrange OP cardiac follow up
Impression / Plan
-
PCP: Gualberto Vazquez
Call Center Director: Dr. Cole, has not been to office since 2022
Impression:
Presents 07/03/2025 with acute onset of chest pain at rest and morning of presentation
Anxiety/depression
IBS
History of C. difficile
Diverticulitis
Echocardiogram 07/03/2025: EF 60-65%, no significant valvular abnormalities or pericardial effusion
Lexiscan nuclear stress test 02/19/2023: Fixed defect in mid inferior segment consistent with soft tissue attenuation. EF greater than 65%. TDI not present ratio 0.91
Plan:
-presented with CP
-Was provided sublingual nitroglycerin and aspirin 324 mg without resolution of symptoms
-serially negative troponins x4
-echo with preserved EF, no sig valve disease
-tele overnight SR/SB without arrhythmias
-ddimer elevated. s/p chest CTA negative for PE, but did show mild bronchitis, atelectasis and endplate thoracic compression fractures.
-no CP overnight
-NPO for stress echo today
-on asa, statin
-for likely DC to home from cardiac standpoint later today if stress testing ok
-will arrange OP cardiac follow up
HPI 07/03/2025:
Patient is a 67-year-old female with past medical history significant for anxiety/depression, IBS, C. difficile, diverticulitis and gastroparesis who presents to emergency department 07/03/2025 with acute onset of chest pain. Patient reports she
was sitting on the morning of 07/03/2025 when she developed acute substernal chest pain. Symptoms no worse with activity or exertion and denies associated shortness of breath although at times she feels like it may be harder to take a deep breath.
She does report several days ago she had an episode where she felt her heart was beating faster than normal which resolved spontaneously. She admits she is not very active and is quite sedentary due to depression. She was placed on Remeron within
the last week. Given ongoing symptoms she decided to come to emergency department. She was given aspirin 324 mg and sublingual nitroglycerin without significant improvement of symptoms workup in emergency department includes EKG which shows sinus
bradycardia without ischemic changes. Troponin x 2 undetectable. Chest x-ray no acute cardiopulmonary disease. D-dimer pending. Preliminary echocardiogram performed while patient was in emergency department shows normal ejection fraction with no
significant valvular disease. At time of this evaluation patient continues to have some mild substernal chest pain she has rates as a 1-2 out of 10. Patient denies recent illnesses or exposures or recent illnesses.
Patient has had multiple visits to emergency department in past for chest pain with unremarkable workup
Progress Note - Call Center Director
Subjective
Date of Service: July 04, 2025
no CP overnight. states feels 'pretty well.'
Objective
Labs:
07/04/25 03:48
07/04/25 03:48
Labs
Hgb 11.6 g/dL (12.0-16.0) L 07/04/25 03:48
Hct 35.1 % (37.0-47.0) L 07/04/25 03:48
Plt Count 206 10^3/uL (130-400) 07/04/25 03:48
Sodium 137 mmol/L (135-145) 07/04/25 03:48
Potassium 4.0 mmol/L (3.5-5.1) 07/04/25 03:48
BUN 19 mg/dl (7-17) H 07/04/25 03:48
Creatinine 1.0 mg/dL (0.6-1.0) 07/04/25 03:48
Glucose 91 mg/dl (70-99) 07/04/25 03:48
Troponins
07/03/25 07/03/25 07/03/25
11:31 14:20 21:04
Troponin I < 0.012 < 0.012 < 0.012
07/04/25 07/04/25
00:42 03:48
Troponin I < 0.012 < 0.012
Vital Signs and I&O:
Vital Signs
Temp Pulse Resp BP Pulse Ox
98 F 60 16 131/74 96
07/04/25 07:42 07/04/25 07:42 07/04/25 07:42 07/04/25 07:42 07/04/25 07:42
Vital Signs
Temp Pulse Resp BP Pulse Ox
98 F 60 16 131/74 96
07/04/25 07:42 07/04/25 07:42 07/04/25 07:42 07/04/25 07:42 07/04/25 07:42
Intake & Output
07/02/25 07/03/25 07/04/25 07/05/25
07:59 07:59 07:59 07:59
Intake Total 240 / 240
Balance 240 / 240
Physical Exam
Physical Exam
GEN: No distress, awake, alert, oriented x3
HEENT: supple, anicteric, mmm, eomi
LUNGS: CTA B/L, no wheezes/rales
CV: Reg, S1/S2, no murmur
ABD: soft, BS+, NT/ND
EXT: No cyanosis, clubbing, edema
NEURO: Gross non-focal
SKIN: Warm, pink, dry. No rash
[2025-07-04 08:51] LABS: Glycohemoglobin (HgbA1c) 5.4 % (4.0-5.9)
[2025-07-04 11:19] VITALS: BP 148/76
[2025-07-04] MEDS: TYLENOL 650 MG PO (11:36)
--- NOTE | 2025-07-04 12:26 | CM ---
Addendum entered by Mikayla Berumen 07/04/25 16:37:
discharge today no needs
[facility] form explained & signed. in chart
PLAN: Home no needs
partner to transport
Original Note:
Patient seen at bedside
IA completed
lives with partner in a 2 story home [address], flight to bed/bath, powder room on 1st floor
PLOF: Independent
DME: Denies
Denies VN/REHAB
Denies insecurities
PCP: Dr. Markham
Pharmacy: [facility], [place]
PLAN: Home, no needs anticipated
--- NOTE | 2025-07-04 14:28 | W.DCSUMMARY ---
Discharge Summary
Discharge Data
Date of Admission: 07/03/25
Date of Discharge: 07/04/25
-
Pending Results: No
Hospital Course
70F PMHX anxiety/depression, IBS, C. difficile, diverticulitis and gastroparesis
Presented with atypical chest discomfort. Troponin is negative x 2. Chest x-ray no acute cardiopulmonary process. Chest CT PE study negative for pulmonary embolism. Please see full report below. Evaluated by cardiology 2D echocardiogram with no
regional wall motion abnormalities. Stress echocardiogram without concerning findings. Was cleared for discharge by cardiology. Continue aspirin and statin outpatient cardiology and PCP follow-up. Would even consider gastrointestinal etiology
for this chest discomfort therefore will refer to care program director. Will provide Carafate and PPI.
CT report did show some atelectasis with mild bilateral bronchitis along with a 3.5 mm stable pulmonary nodule that has not changed size since 2021. Will refer to pet care associate. No wheezing or hypoxemia noted on exam.
CTPE study
IMPRESSION:
1. Mild cardiomegaly.
2. Mild right lung volume loss with mild left to right mediastinal shift and mild elevation of the right hemidiaphragm.
3. Mild bilateral bronchitis.
4. Moderate mosaic attenuation in the lower lobes suggesting obstructive small airways disease with multifocal air trapping and subsegmental atelectasis.
5. Multilevel vertebral body endplate compression fractures in the thoracic spine with mild multilevel loss of vertebral body height.
2d echo
SUMMARY
1. Normal left ventricular size and systolic function without regional wall motion abnormalities. Estimated left ventricular ejection fraction of 60 to 65% by visual estimation. Normal diastolic function.
2. Normal right ventricular size and systolic function.
3. No significant valvular abnormalities.
4. No significant pericardial effusion.
5. No prior echocardiogram available for comparison.
Stress Echo
STRESS FINDINGS
Patient's Performance and Exam Tolerance:
The patient developed shortness of breath during the test. Onset of symptoms occured at stage 2 of the protocol. The symptoms resolved with rest.
Stress ECG and Blood Pressure:
The peak heart rate achieved was 139 bpm, which was 92 % of the maximum age predicted heart rate. Patient had a normal heart rate response to stress. There was PVCS during stress. The peak blood pressure during stress was 150/60 mmHg. The blood
pressure response was normal. There were no ischemic changes by EKG during stress.
Stress Echo Findings:
Stress echocardiogram shows left ventricular segmental wall motion augments appropriatly to stress. Peak stress left ventricular ejection fraction was estimated at approximately 65 to 70% (normal EF).
Seen and examined the day of discharge which was 07/04/2025. No new complaints. No acute overnight events.
NAD
Scleral Anicteric
MMM
No JVD
CTABL
RRR, S1/S2
Soft, NT, ND, BS+
Warm, Dry
AAOx3
Calm
More than 30 minutes spent in discharge including
Final examination of the patient
Summarizing hospital stay
Instructions for continuing care to all relevant caregivers
Preparation of discharge records, prescriptions, and referral forms
Total time spent (in minutes): 33mins
Discharge Plan
-
Patient Disposition: Home (Routine Discharge)
Discharge Diagnosis/Procedures: Chest pain
Condition: Good
Diet: As tolerated, Low Fat, Low Cholesterol and 2 Gram Sodium
Activity Restrictions/Additional Instructions:
Presented with atypical chest discomfort. Troponin is negative x 2. Chest x-ray no acute cardiopulmonary process. Chest CT PE study negative for pulmonary embolism. Please see full report below. Evaluated by cardiology 2D echocardiogram with no
regional wall motion abnormalities. Stress echocardiogram without concerning findings. Was cleared for discharge by cardiology. Continue aspirin and statin outpatient cardiology and PCP follow-up. Would even consider gastrointestinal etiology
for this chest discomfort therefore will refer to care program director. Will provide Carafate and PPI.
CT report did show some atelectasis with mild bilateral bronchitis along with a 3.5 mm stable pulmonary nodule that has not changed size since 2021. Will refer to pet care associate. No wheezing or hypoxemia noted on exam.
CTPE study
IMPRESSION:
1. Mild cardiomegaly.
2. Mild right lung volume loss with mild left to right mediastinal shift and mild elevation of the right hemidiaphragm.
3. Mild bilateral bronchitis.
4. Moderate mosaic attenuation in the lower lobes suggesting obstructive small airways disease with multifocal air trapping and subsegmental atelectasis.
5. Multilevel vertebral body endplate compression fractures in the thoracic spine with mild multilevel loss of vertebral body height.
2d echo
SUMMARY
1. Normal left ventricular size and systolic function without regional wall motion abnormalities. Estimated left ventricular ejection fraction of 60 to 65% by visual estimation. Normal diastolic function.
2. Normal right ventricular size and systolic function.
3. No significant valvular abnormalities.
4. No significant pericardial effusion.
5. No prior echocardiogram available for comparison.
Stress Echo
STRESS FINDINGS
Patient's Performance and Exam Tolerance:
The patient developed shortness of breath during the test. Onset of symptoms occured at stage 2 of the protocol. The symptoms resolved with rest.
Stress ECG and Blood Pressure:
The peak heart rate achieved was 139 bpm, which was 92 % of the maximum age predicted heart rate. Patient had a normal heart rate response to stress. There was PVCS during stress. The peak blood pressure during stress was 150/60 mmHg. The blood
pressure response was normal. There were no ischemic changes by EKG during stress.
Stress Echo Findings:
Stress echocardiogram shows left ventricular segmental wall motion augments appropriatly to stress. Peak stress left ventricular ejection fraction was estimated at approximately 65 to 70% (normal EF).
Referrals:
Ирина Gamboa PA-C [Specified Professional Personl, Cardiology] - 07/25/25 7:40 am
Referral Note: You have a cardiology follow-up appointment at the [place] office with Dr. Cole's physician assistant account executive, Ирина. Please call with questions
Indra Markham, DO [Family Provider, Family Practice]
Bubba Ace DO [Active, Gastroenterology] - in two to three days
Prescriptions:
New
atorvastatin 20 mg Tablet
20 mg PO HS Qty: 30 0RF
aspirin 81 mg Tablet,Chewable
81 mg PO DAILY Qty: 30 0RF
sucralfate [Carafate] 1 gram tablet
1 g PO BID Qty: 60 0RF
pantoprazole [Protonix] 40 mg tablet,delayed release (DR/EC)
40 mg PO DAILY Qty: 60 0RF
Continued
cyanocobalamin (vitamin B-12) 1,000 mcg Tablet
1,000 mcg PO DAILY
acetaminophen [Tylenol Extra Strength] 500 mg Tablet
500 mg PO BIDPRN PRN (Reason: mild pain)
escitalopram oxalate 20 mg Tablet
20 mg PO DAILY
clonazepam 0.25 mg Tablet,Disintegrating
0.25 mg PO BIDPRN PRN (Reason: anxiety)
mirtazapine 7.5 mg Tablet
7.5 mg PO HS
cholecalciferol (vitamin D3) 25 mcg (1,000 unit) Tablet
25 mcg PO DAILY
Medical Marijuana
1 puff inhalation BIDPRN PRN (Reason: anxiety/mild pain)
Patient Comments:
07/03/2025, pt. smokes flower form of marijuana and takes 1 puff BIDPRN for anxiety/mild pain.
Discontinued
atorvastatin 20 mg Tablet
20 mg PO HS
Discharge Orders:
Discharge Patient (As Directed); Ordered 07/04/25
Ordered By: Catarino Barrow
Discharge Date and Time
Print Language: CAMBODIAN
[2025-07-04 15:05] VITALS: BP 132/81
== END 2025-07-04 16:23 | disposition home or self-care (01) ==
LOC: 3 WEST ACU 18:40
PROVIDERS: Emergency Medicine; ADMITTING PHYSICIAN Internal Medicine; ATTENDING PHYSICIAN Hospitalist; CONSULT PHYSICIAN Internal Medicine Interventional Cardiology; EMERGENCY PHYSICIAN Emergency Medicine; FAMILY PHYSICIAN Student in an Organized Health Care Education/Training Program
DX: R07.89 Other chest pain (principal); F41.9 Anxiety disorder, unspecified; F32.A Depression, unspecified; K31.84 Gastroparesis; K58.9 Irritable bowel syndrome, unspecified; R79.89 Other specified abnormal findings of blood chemistry; K21.9 Gastro-esophageal reflux disease without esophagitis; L40.9 Psoriasis, unspecified; E78.00 Pure hypercholesterolemia, unspecified; Z87.891 Personal history of nicotine dependence; Z82.49 Family history of ischemic heart disease and other diseases of the circulatory system
CPT/HCPCS: 71046; 71275; 80053; 83036; 84484; 85025; 85027; 85379; 85652; 86140; 93005; 93017; 93306; 93350; 96374; 96375; 99285; G0378; Q9967